=== PATIENT | female | born 1980 | race Caucasian/White ===

== ENCOUNTER 2018-03-12 18:24 | Emergency (ER) | payer OTHER ==
[2018-03-12 18:57] VITALS: BP 112/74; PULSE 83; TEMP 98.9; BMI 36.0
--- NOTE | 2018-03-12 19:24 | PDOC ---
History of Present Illness - General History Source: Patient Exam Limitations: No Limitations - History of Present Illness Initial Comments: 03/12/18 19:34 he patient is a 37 year old female, with a significant past medical history of kidney stones and polysystic ovaries, who presents to the ED complaining of headache and nausea for the past 5 days. She reports that the pain started suddenly, which she describes as localized in the temples bilaterally. She notes that she has been taking Exedrin with minimal relieve of her symptoms. She denies any change in vision. The patient denies chest pain, shortness of breath. Denies fever, chills, nausea , vomiting, diarrhea or constipation. Allergies: None Past surgical history: None reported Social History: No alcohol, tobacco or drug use reported <Thomas Rodriguez - Last Filed: 03/12/18 19:34> <Jaycee Carpenter - Last Filed: 03/13/18 03:42> - General Chief Complaint: Migraine Headache Stated Complaint: MIGRAINE X 5 DAYS Time Seen by Provider: 03/12/18 19:20 Past History <Thomas Rodriguez - Last Filed: 03/12/18 19:34> - Past Medical History Asthma: No Cancer: No Cardiac Disorders: No COPD: No Diabetes: No HTN: No Seizures: No Thyroid Disease: No Other medical history: POLYCYSTIC OVARIES - Suicide/Smoking/Psychosocial Hx Smoking History: Never smoked Have you smoked in the past 12 months: No Hx Alcohol Use: No Drug/Substance Use Hx: No Substance Use Type: None Hx Substance Use Treatment: No <Jaycee Carpenter - Last Filed: 03/13/18 03:42> - Past Medical History Allergies/Adverse Reactions: Allergies Allergy/AdvReac Type Severity Reaction Status Date / Time No Known Drug Allergies Allergy Unknown Verified 03/12/18 18:26 Home Medications: Ambulatory Orders Acetaminophen/Caffeine/Butalb [Fioricet -] 1 tab PO Q6H PRN #10 tablet MDD 3 tabs 03/12/18 Control 0 mg PO DAILY 03/12/18 metFORMIN HCL [Metformin HCl] 500 mg PO BID 03/12/18 Review of Systems - Review of Systems Able to Perform ROS?: Yes Comments:: 03/12/18 19:35 GENERAL/CONSTITUTIONAL: No fever or chills. No weakness. HEAD, EYES, EARS, NOSE AND THROAT: No change in vision. No ear pain or discharge. No sore throat. GASTROINTESTINAL: (+) Nausea. No vomiting, diarrhea or constipation. GENITOURINARY: No dysuria, frequency, or change in urination. CARDIOVASCULAR: No chest pain or shortness of breath. RESPIRATORY: No cough, wheezing, or hemoptysis. MUSCULOSKELETAL: No joint or muscle swelling or pain. No neck or back pain. SKIN: No rash NEUROLOGIC: (+) Headache. No vertigo, loss of consciousness, or change in strength/sensation. ENDOCRINE: No increased thirst. No abnormal weight change. HEMATOLOGIC/LYMPHATIC: No anemia, easy bleeding, or history of blood clots. ALLERGIC/IMMUNOLOGIC: No hives or skin allergy. <Thomas Rodriguez - Last Filed: 03/12/18 19:34> *Physical Exam - Vital Signs Last Vital Signs Temp Pulse Resp BP Pulse Ox 98.9 F 83 18 112/74 100 03/12/18 18:24 03/12/18 18:24 03/12/18 18:24 03/12/18 18:24 03/12/18 18:24 - Physical Exam Comments: 03/12/18 19:35 Constitutional: Awake, alert, oriented. No acute distress. Head: (+) Mild bitemporal tenderness. Normocephalic. Atraumatic Eyes: PERRL. EOMI. Conjunctivae are not pale. ENT: Mucous membranes are moist and intact. Posterior pharynx without exudates or erythema. Uvula midline. Neck: Supple. Full ROM. No lymphadenopathy. Cardiovascular: Regular rate. Regular rhythm. S1, S2 regular. Distal pulses are 2+ and symmetric. Pulmonary/Chest: No evidence of respiratory distress. Clear to auscultation bilaterally No wheezing, rales or rhonchi. Abdominal: Soft and non-distended. There is no tenderness. No rebound, guarding or rigidity. No organomegaly. No palpable masses. Good bowel sounds. Back: No CVA tenderness. Musculoskeletal: No edema. No cyanosis. No clubbing. Full range of motion in all extremities. Nocalf tenderness. Radial/pedal pulses are intact and 2+ bilaterally Skin: Skin is warm and dry. No petechiae. No purpura. Neurological: Alert and oriented to person, place, and time. Cranial nerves II -XII are grossly intact. Normal speech. Strength is grossly symmetric. No sensory deficits. Psychiatric: Good eye contact. Normal interaction, affect and behavior. <Thomas Rodriguez - Last Filed: 03/12/18 19:34> - Vital Signs Last Vital Signs Temp Pulse Resp BP Pulse Ox 98.9 F 83 18 112/74 100 03/12/18 18:24 03/12/18 18:24 03/12/18 18:24 03/12/18 18:24 03/12/18 18:24 <Jaycee Carpenter - Last Filed: 03/13/18 03:42> Progress Note - Progress Note Progress Note: Documentation has been prepared under my direction and personally reviewed by me in its entirety. I attest that this documented accurately reflects all work, treatment, procedures and medical decision making performed by me. <Jaycee Carpenter - Last Filed: 03/13/18 03:42> Medical Decision Making - Medical Decision Making As noted above, this 37-year-old woman presents with a one-week history of bitemporal headache; patient is able to temporarily treat the headache pain with Excedrin but pain recurs. She has no characteristics suggestive of acute intracranial process except that she has been nauseated during this time that she has had the headache. She denies any phenomenon consistent with migraine aura symptoms. Exam as noted PGU negative Noncontrast head CT negative for acute intracranial process Toradol 60 mg IM administered. The patient reports significant relief in her headache pain after Toradol. Patient wishes to be discharged. She will be advised to rest and drink plenty of fluids. She can continue [id number] NSAID/Tylenol as needed. Small (# 10) prescription for Fioricet sent to pharmacy to be used if she has pain despite OTC meds. She should follow-up with her doctor within the next 5 days or return to the emergency room if she has severe pain or vomiting. <Jaycee Carpenter - Last Filed: 03/13/18 03:42> *DC/Admit/Observation/Transfer - Attestations Scribe Attestion: 03/12/18 19:36 Documentation prepared by Thomas Rodriguez, acting as adjunct faculty for medical terminology for Jaycee Carpenter MD <Thomas Rodriguez - Last Filed: 03/12/18 19:34> <Jaycee Carpenter - Last Filed: 03/13/18 03:42> Diagnosis at time of Disposition: Headache Qualifiers: Headache type: tension-type Headache chronicity pattern: acute headache Intractability: not intractable Qualified Code(s): G44.209 - Tension-type headache, unspecified, not intractable - Discharge Dispostion Disposition: HOME Condition at time of disposition: Stable - Prescriptions Prescriptions: Acetaminophen/Caffeine/Butalb [Fioricet -] 1 tab PO Q6H PRN #10 tablet MDD 3 tabs PRN Reason: Headache - Patient Instructions Printed Discharge Instructions: DI for Headache Additional Instructions: Rest; drink plenty of fluids Acetaminophen/ibuprofen/naproxen as needed for pain Fioricet 1 tab up to 3 times a day as needed for persistent headache Follow-up with your general doctor within the next 5 days Return to ER if you have persistent severe headache or develop vomiting
[2018-03-12] MEDS ORDERED: KETOROLAC TROMETHAMINE 30 MG/1 ML VIAL IVPUSH ONE (20:42)
[2018-03-12] MEDS ORDERED: KETOROLAC TROMETHAMINE 60 MG/2 ML VIAL IM ONE (20:53)
[2018-03-12] MEDS ORDERED: KETOROLAC TROMETHAMINE 60 MG/2 ML VIAL ONE (20:53)
== END 2018-03-12 21:38 | disposition home or self-care (01) ==
LOC: FER 18:24
PROC: 3E0233Z Introduction of Anti-inflammatory into Muscle, Percutaneous Approach (ICD-10-PCS; principal; 2018-03-12)
DX: G44.209 Tension-type headache, unspecified, not intractable (principal); E28.2 Polycystic ovarian syndrome
CPT/HCPCS: 70450-TC; 84703; 99281-25

== ENCOUNTER 2020-04-17 06:15 | Inpatient (IN) | payer OTHER ==
[2020-04-17 06:57] VITALS: BMI 42.9
[2020-04-17] MEDS ORDERED: OXYTOCIN 20 UNITS in 0.9% NS 20 UNIT/1,000 ML INFUS.BAG IV ONE (07:49)
[2020-04-17] MEDS ORDERED: morphine SULFATE/PF 0.5 MG/ML (2cc Syringe - QUVA) ONE (07:53)
[2020-04-17] MEDS ORDERED: CITRIC ACID/SODIUM CITRATE 30 ML UNIT-DOSE CUP PO ONE (08:05)
[2020-04-17] MEDS ORDERED: ELECTROLYTE-148 SOLN 1,000 ML IV SCH (08:15)
[2020-04-17 09:40] LABS: CORD HCO3 22.7 mmHg (20-29); CORD pH 7.242 (7.14-7.44)
[2020-04-17] MEDS ORDERED: oxyCODONE HCL 5 MG TABLET PO PRN (09:40)
[2020-04-17] MEDS ORDERED: IBUPROFEN 800 MG/8 ML IJ IVPB PRN (09:40)
[2020-04-17] MEDS ORDERED: BENZOCAINE 20% 57 GM BOTTLE TP PRN (09:40)
[2020-04-17] MEDS ORDERED: METHYLERGONOVINE MALEATE 0.2 MG/1 ML AMP IM PRN (09:40)
[2020-04-17] MEDS ORDERED: WITCH HAZEL 50% (TUCKS) 40 PAD/JAR PAD TP PRN (09:40)
[2020-04-17] MEDS ORDERED: IBUPROFEN 600 MG TABLET (FP) PO PRN (09:40)
[2020-04-17] MEDS ORDERED: BENZOCAINE 28 GM HEMORRHOIDAL OINTMENT TP PRN (09:40)
[2020-04-17] MEDS ORDERED: ONDANSETRON 4 MG/2 ML VIAL IVPUSH PRN (09:41)
[2020-04-17 09:45] LABS: CORD BASE EXCESS -5.4 mmol/L (0-2); CORD HCO3 20.3 mmHg (20-29); CORD PCO2 40.4 mmHg (30-78); CORD pH 7.32 (7.14-7.44)
[2020-04-17] MEDS ORDERED: CEFAZOLIN 1 GM/D5W 1 GM/50 ML BAG IVPB SCH (10:00)
[2020-04-17] MEDS: PRENATAL VITAMINS W/ FOLIC ACID TABLET (FP) PO SCH (10:34)
[2020-04-17] MEDS ORDERED: ONDANSETRON 4 MG/2 ML VIAL ONE (10:56)
[2020-04-17] MEDS ORDERED: METOCLOPRAMIDE HCL INJECTION 10 MG/2 ML VIAL IVPUSH PRN (14:27)
[2020-04-17] MEDS ORDERED: DEXAMETHASONE SOD PHOSPHATE 4 MG/1 ML VIAL IVPUSH ONE (14:28)
[2020-04-17] MEDS: CEFAZOLIN 1 GM/D5W 1 GM/50 ML BAG IVPB SCH ×2 (18:24→23:59)
[2020-04-17] MEDS: FERROUS SO4 325 MG TABLET (FP) PO SCH (18:47)
[2020-04-18 08:14] LABS: BASO % 0.4 % (0-2.0); EOS % 1.2 % (0-4.5); HEMATOCRIT 35.5 % (32.4-45.2); HEMOGLOBIN 11.6 GM/dL (10.7-15.3); LYMPH % 16.7 % (8-40); MCH 28.9 pg (25.7-33.7); MCHC 32.8 g/dl (32.0-36.0); MEAN CELL VOLUME 88.1 fl (80-96); MEAN PLT VOLUME 9.4 fl (7.5-11.1); MONO % 5.8 % (3.8-10.2); NEUT % 75.9 % (42.8-82.8); PLATELET COUNT 198 K/MM3 (134-434); RBC 4.03 M/mm3 (3.60-5.2); RDW 14.9 % (11.6-15.6); WHITE BLOOD COUNT 13.5 K/mm3 (4.0-10.0)
[2020-04-18] MEDS: ACETAMINOPHEN 325 MG TABLET (FP) PO PRN ×2 (09:32→18:19)
[2020-04-18] MEDS: IBUPROFEN 600 MG TABLET (FP) PO PRN ×2 (09:32→18:20)
[2020-04-18] MEDS: ENOXAPARIN NA (PORCINE) 40 MG/0.4 ML DISP.SYRIN SQ SCH (09:33)
[2020-04-18] MEDS: SIMETHICONE 80 MG TAB.CHEW (FP) PO PRN ×2 (09:33→18:20)
[2020-04-18] MEDS: CEFAZOLIN 1 GM/D5W 1 GM/50 ML BAG IVPB SCH (09:39)
[2020-04-18] MEDS ORDERED: BISACODYL 10 MG SUPP.RECT RC PRN (09:40)
[2020-04-18] MEDS: PRENATAL VITAMINS W/ FOLIC ACID TABLET (FP) PO SCH (09:46)
[2020-04-18] MEDS: FERROUS SO4 325 MG TABLET (FP) PO SCH ×2 (09:46→18:20)
[2020-04-19] MEDS: ACETAMINOPHEN 325 MG TABLET (FP) PO PRN ×2 (08:37→13:59)
[2020-04-19] MEDS: SIMETHICONE 80 MG TAB.CHEW (FP) PO PRN (08:37)
[2020-04-19] MEDS: IBUPROFEN 600 MG TABLET (FP) PO PRN ×2 (08:38→14:00)
[2020-04-19 09:54] VITALS: BP 108/68; PULSE 82; TEMP 97.6
[2020-04-19] MEDS: FERROUS SO4 325 MG TABLET (FP) PO SCH (10:08)
[2020-04-19] MEDS: PRENATAL VITAMINS W/ FOLIC ACID TABLET (FP) PO SCH (10:08)
[2020-04-19] MEDS: ENOXAPARIN NA (PORCINE) 40 MG/0.4 ML DISP.SYRIN SQ SCH (10:08)
== END 2020-04-19 17:30 | disposition home or self-care (01) | DRG 785 ==
LOC: JLDR 06:15 → J3W 11:10
PROVIDERS: ADMIT Obstetrics & Gynecology; ATTEND Obstetrics & Gynecology
PROC: 10D00Z1 Extraction of Products of Conception, Low, Open Approach (ICD-10-PCS; principal; 2020-04-17)
PROC: 0UB70ZZ Excision of Bilateral Fallopian Tubes, Open Approach (ICD-10-PCS; 2020-04-17)
DX: O32.1XX0 Maternal care for breech presentation, not applicable or unspecified (principal); O34.219 Maternal care for unspecified type scar from previous cesarean delivery; O34.83 Maternal care for other abnormalities of pelvic organs, third trimester; N83.8 Other noninflammatory disorders of ovary, fallopian tube and broad ligament; O99.214 Obesity complicating childbirth; E66.01 Morbid (severe) obesity due to excess calories; Z3A.39 39 weeks gestation of pregnancy; Z37.0 Single live birth; Z91.018 Allergy to other foods
CPT/HCPCS: 36415; 36600; 82803; 85025; 88304-TC; 88307-TC

== ENCOUNTER 2023-07-29 09:07 | Emergency (ER) | payer OTHER ==
[2023-07-29 09:22] VITALS: BP 120/84; PULSE 80; RESP 16; TEMP 98.1; BMI 37.5
[2023-07-29] MEDS ORDERED: METHOCARBAMOL 500 MG TABLET ONE (09:24)
[2023-07-29] MEDS ORDERED: KETOROLAC TROMETHAMINE 30 MG/1 ML VIAL ONE (09:24)
[2023-07-29] MEDS: METHOCARBAMOL 750 MG TAB PO STA (09:34)
[2023-07-29] MEDS: KETOROLAC TROMETHAMINE 30 MG/1 ML VIAL IM ONE (09:35)
== END 2023-07-29 09:39 | disposition home or self-care (01) ==
LOC: FER 09:07
PROC: 3E0233Z Introduction of Anti-inflammatory into Muscle, Percutaneous Approach (ICD-10-PCS; principal; 2023-07-29)
DX: S16.1XXA Strain of muscle, fascia and tendon at neck level, initial encounter (principal); S13.4XXA Sprain of ligaments of cervical spine, initial encounter; R51.9 Headache, unspecified; R11.0 Nausea; V43.52XA Car driver injured in collision with other type car in traffic accident, initial encounter
CPT/HCPCS: 99284-25